=== PATIENT | male | born 1955 | race Caucasian/White ===

== ENCOUNTER 2019-12-23 17:40 | Emergency (ER) | payer OTHER, MEDICARE ==
[2019-12-23] MEDS ORDERED: Cephalexin 500 MG Cap PO ONE (18:47)
--- NOTE | 2019-12-23 18:53 | EDM.PDOC ---
ED HPI GENERAL MEDICAL PROBLEM - General Chief Complaint: Laceration Stated Complaint: R THUMB INJURY Time Seen by Provider: 12/23/19 17:45 Source of Information: Reports: Patient History Limitations: Reports: No Limitations - History of Present Illness INITIAL COMMENTS - FREE TEXT/NARRATIVE: c/o thumb lac R handed, adjusting a scythe on farm equipment, wearing glove, lac of thumb on R last Td in past year right thumb Pain Score (Numeric/FACES): 4 - Related Data Allergies Allergy/AdvReac Type Severity Reaction Status Date / Time No Known Allergies Allergy Verified 10/03/13 07:45 Home Meds: Home Meds Glucosamine/Chondroitin Sulf A [Glucosamine Chondroitin Cap] 2 each PO DAILY 10/03/13 [History] Multivitamin with Minerals [Multiple Vitamin] 1 tab PO DAILY 10/03/13 [History] [place]-3 Fatty Acids/Fish Oil [Fish Oil Softgel] 1 each PO DAILY 10/03/13 [History] cephALEXin [Cephalexin] 500 mg PO TID #9 tablet 12/23/19 [Rx] Past Medical History Cardiovascular History: Reports: Hypertension Social & Family History - Tobacco Use Smoking Status *Q: Never Smoker ED ROS GENERAL - Review of Systems Review Of Systems: See Below Constitutional: Reports: No Symptoms HEENT: Reports: No Symptoms Respiratory: Reports: No Symptoms Cardiovascular: Reports: No Symptoms Endocrine: Reports: No Symptoms GI/Abdominal: Reports: No Symptoms : Reports: No Symptoms Musculoskeletal: Reports: No Symptoms Skin: Reports: Wound Neurological: Reports: No Symptoms Psychiatric: Reports: No Symptoms Hematologic/Lymphatic: Reports: No Symptoms Immunologic: Reports: No Symptoms ED EXAM, SKIN/RASH Exam: See Below Exam Limited By: No Limitations General Appearance: Alert, WD/WN, No Apparent Distress Head: Atraumatic Neck: Normal Inspection Respiratory/Chest: Lungs Clear Cardiovascular: Regular Rate, Rhythm Extremities: Other (R thumb with lac on fingerpad on volar aspect, no nail or IP involvement, sensation intact, no bone or tendon injury, FROM, no f.b., base cleaned with surgical soap x 4, 2% lido without used for digit block with #30 needle with complete analgesia, 3-0 ) Neurological: Alert, Oriented, CN II-XII Intact, Normal Cognition, No Motor/Sensory Deficits Skin: Warm, Dry, Normal Color Lymphatic: No Adenopathy Course - Vital Signs Last Recorded V/S: Last Vital Signs Temp 36.6 C 12/23/19 17:40 Pulse 81 12/23/19 17:40 Resp 18 12/23/19 17:40 BP 169/97 H 12/23/19 17:40 Pulse Ox 100 12/23/19 17:40 - Orders/Labs/Meds Meds: Medications Discontinued Medications Generic Name Dose Route Start Last Admin Trade Name wDayne PRN Reason Stop Dose Admin Cephalexin 500 mg 12/23/19 18:47 12/23/19 19:07 Keflex PO 12/23/19 18:48 500 mg ONETIME ONE Administration - Re-Assessments/Exams Free Text/Narrative Re-Assessment/Exam: 12/23/19 19:14 repair done without difficulty, lac was 3 cm long and curvilinear, nearly 1 cm deep yet missed all structures other than the fingerpad Departure - Departure Time of Disposition: 18:46 Disposition: Home, Self-Care 01 Condition: Good Clinical Impression: Laceration of thumb Qualifiers: Encounter type: initial encounter Damage to nail status: without damage Foreign body presence: without foreign body Laterality: right Qualified Code(s): S61.011A - Laceration without foreign body of right thumb without damage to nail, initial encounter - Discharge Information *PRESCRIPTION DRUG MONITORING PROGRAM REVIEWED*: Not Applicable *COPY OF PRESCRIPTION DRUG MONITORING REPORT IN PATIENT CY: Not Applicable Prescriptions: cephALEXin [Cephalexin] 500 mg PO TID #9 tablet Instructions: Laceration Care, Adult, Sutures, Johnson, or Adhesive Wound Closure, [id number] Referrals: Kd Shipman MD [Primary Care Provider] - Forms: ED Department Discharge Additional Instructions: Keep clean and dry and covered with a dressing. Do not immerse in water. Use finger splint when out of bed. Do not put pressure on finger pad. To decrease risk of infection, take cephalexin 500 mg 1 tab 3 times a day for 3 days. However, see a physician the same day for any increase in redness, swelling, pain, warmth, fever or drainage. See your doctor in one to remove sutures. For discomfort, take ibuprofen 200 mg 3 tabs and/or acetaminophen 500 mg 2 tabs 4 times a day as needed. Sepsis Event Note (ED) - Evaluation Sepsis Screening Result: No Definite Risk - Focused Exam Vital Signs: Vital Signs Temp Pulse Resp BP Pulse Ox 12/23/19 17:40 36.6 C 81 18 169/97 H 100
[2019-12-23 19:57] VITALS: BP 154/98; PULSE 85
== END 2019-12-23 19:10 | disposition home or self-care (01) ==
LOC: FB.ED 17:40
DX: S61.011A Laceration without foreign body of right thumb without damage to nail, initial encounter (principal); I10 Essential (primary) hypertension; Z79.899 Other long term (current) drug therapy; W26.9XXA Contact with unspecified sharp object(s), initial encounter
CPT/HCPCS: 12002; 99282; A9270

== ENCOUNTER 2022-08-08 06:54 | Day surgery (SDC) | payer MEDICARE ==
[2022-08-08] MEDS ORDERED: Lidocaine 2% 5 ML SDV IV ONE (06:55)
[2022-08-08] MEDS ORDERED: Propofol 200 MG/20 ML SDV IV ONE (06:55)
[2022-08-08] MEDS ORDERED: Lactated Ringers 1,000 ML IV SCH (07:00)
[2022-08-08] MEDS ORDERED: Sodium Chloride 0.9% 10 ML Syringe FLUSH PRN (07:00)
[2022-08-08] MEDS ORDERED: Simethicone Drops 40 MG/0.6 ML 30 ML Bottle PO ONE (08:17)
[2022-08-08 09:41] VITALS: BP 146/110; PULSE 56
== END 2022-08-08 09:29 | disposition home or self-care (01) ==
LOC: FB.SDS 06:54
PROVIDERS: ATTEND Surgery
DX: K57.30 Diverticulosis of large intestine without perforation or abscess without bleeding (principal); K64.2 Third degree hemorrhoids; E78.5 Hyperlipidemia, unspecified; I10 Essential (primary) hypertension; M19.90 Unspecified osteoarthritis, unspecified site; E66.9 Obesity, unspecified; Z79.899 Other long term (current) drug therapy; Z68.31 Body mass index [BMI] 31.0-31.9, adult
CPT/HCPCS: 00811; A9270-GY; J2704; J7120